=== PATIENT | female | born 1960 | race Caucasian/White ===

== ENCOUNTER 2016-08-26 05:45 | Day surgery (SDC) | payer OTHER ==
--- NOTE | 2016-08-25 15:02 | HP ---
DATE OF CLINIC: 1960 MARISELA MANUEL : 1960 PLANNED PROCEDURE: Left Knee Arthroscopic Medial Meniscal Tear Debridement and Chondroplasty DATE OF SURGERY: August 26, 2016 SURGEON: Kristopher Collado M.D. HISTORY OF PRESENT ILLNESS Marisela Manuel is a 56 year old female. * Medication list reviewed with patient allergy list reviewed with patient. * Tried NSAIDS * Has not tried Physical Therapy * Has not tried Injections The patient is a 56-year-old female who was referred to me by Dr. Chau regarding persistent left knee pain. The patient states that back in May of 2016 she developed left knee pain. 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 Patient reports that she never really had any problems with this pain. She has a number of medical issues such as Fibromyalgia after having herniated disc surgery, gall bladder surgery as well as ovarian cyst removal. She is wearing a brace and she states that this helps some of her pain and discomfort. Because this has not improved with nonoperative treatment, she was asked to see me for further evaluation and possible treatment. Ideally she would like to be treated nonoperatively however, the medial sided knee pain continues to bother her. She occasionally has catching in her knee. She points to her medial jointline where she has most of her discomfort. Dr. Chau has ordered knee MRI's as well as knee xrays and the patient has signs of an abnormal posterior horn medial meniscal tear with extension into the inferior articular surface. The patient does have some chondromalacia, or early arthritis on her medial jointline as well and she would like to know what options she has. Currently she has been taking anti-inflammatories with limited improvement. After discussion and review of treatment options, both nonoperative and surgical, she has elected to proceed with surgery and presents today preoperatively. CURRENT MEDICATION * Citalopram Hydrobromide 40 MG Tablet as directed 0 days, 0 refills * [facility] Ibuprofen 200 MG Tablet as needed 0 days, 0 refills * TraZODone HCl 50 MG Tablet as directed 0 days, 0 refills SOCIAL HISTORY Behavioral: Smoking status: Never smoker. ALLERGIES * Morphine Derivatives Reaction: Nausea/Vomiting/Diarrhea * Rice * Sulfa Drugs Reaction: Nausea/Vomiting/Diarrhea REVIEW OF SYSTEMS Systemic: No fever and no recent weight change. Cardiovascular: No chest pain or discomfort and no palpitations. Pulmonary: No cough and no wheezing. Gastrointestinal: No nausea, no vomiting, no abdominal pain, and no diarrhea. Hematologic: No easy bleeding (no blood clots). Neurological: No motor disturbances and no sensory disturbances. Skin: No skin lesions and no rash. PHYSICAL FINDINGS * Vitals taken 08/25/2016 09:48 am BP-Sitting R 136/94 mmHg 100 - 120/56 - 80 BP Cuff Size Regular Pulse Rate-Sitting 65 bpm 50 - 100 Pulse Rhythm Regular Temp-Oral 97.9 F 96 - 101 Weight 163 lbs 98 - 183 Pain Level 0 General Appearance: * Well developed. * In no acute distress. Eyes: General/bilateral: Extraocular Movements: * Normal. Lungs: * Clear to auscultation. * No wheezing was heard. * No rales/crackles were heard. Cardiovascular: Heart Rate And Rhythm: * Heart rate was normal. * Heart rhythm regular. Abdomen: Palpation: * Abdominal non-tender. Neurological: * Oriented to time, place, and person. Motor: * Dominant Hand = Right Hand. I had the patient walk for me in the hallway, she has a noticeable limp. When I asked her where she is tender she points to the medial aspect of her left knee. PHYSICAL FINDINGS RIGHT EXTREMITY Knee General Appearance: no signs of contusion, scars, swelling or edema Neurologic: Gross sensation to light touch was present in the distribution of DP/SP/MP/LP/saph/sural nerves Vascular: 2+ PT pulse Motor: 5 out of 5 strength quad, EHL, TA, GA, peroneals Range of Motion AROM: 0 to 130 degrees PROM: 0 to 135 degrees Focused Exam Findings: Patella Pateller tilt: neutral Patella non tender to touch No audible crepitus Knee Joint Medial joint line: non tender Lateral joint line: non tender Squat test with hyperflexion: No pain on right knee Donna exam: normal Anterior drawer: normal [place] maneuver: no snapping, pain negative Stable to varus and valgus stress at 0 and 30 degrees PHYSICAL FINDINGS LEFT EXTREMITY Knee General Appearance: no signs of contusion, scars, swelling or edema. The patient is tender to touch on the medial joint line with palpation. She has some tenderness with palpation on the medial femoral condyle Neurologic: Gross sensation to light touch was present in the distribution of DP/SP/MP/LP/saph/sural nerves Vascular: 2+ PT pulse Motor: 5 out of 5 strength quad, EHL, TA, GA, peroneals Range of Motion AROM: 5 to 110 degrees PROM: 0 to 120 degrees Focused Exam Findings: Patella Pateller tilt: neutral Patella tender to touch Mild amt of audible crepitus Knee Joint Medial joint line: Tender to touch Lateral joint line: non tender Squat test with hyperflexion: painful on medial aspect of the left knee Donna exam: normal Anterior drawer: normal [place] maneuver: no snapping, pain POSITIVE Stable to varus and valgus stress at 0 and 30 degrees PREVIOUS TESTS * Test: CBC WITH DIFF Report Date: 08/20/2016 WBC 6.9 10*3/mL MCV 89.9 fL RBC 4.66 10*6/uL NEUTROPHILS 53.6 % MCH 29.4 pg MCHC 32.7 g/dL Low RDW 13.4 % PLATELET COUNT 239 10*3/mL IMM NEUT % 0.1 % IMM NEUT # 0.0 10*3/mL MONOCYTES 7.8 % BASOPHIL 0.7 % EOSINOPHIL 3.2 % High HCT 41.9 % HGB 13.7 g/L LYMPHOCYTE 34.6 % ANC 3.7 10*3/mL * Test: BASIC METABOLIC PROFILE Report Date: 08/20/2016 BUN 15 mg/dL BUN/CREAT RATIO 21 High CALCIUM 9.6 mg/dL GLUCOSE 86 mg/dL CREATININE 0.7 mg/dL SODIUM 140 meq/L POTASSIUM 4.4 meq/L CHLORIDE 103 meq/L CARBON DIOXIDE 29 meq/L ANION GAP 12 meq/L GFR 86 IMAGING Xrays performed on 06/26/16 were reviewed. These xrays show bilateral knees. The patient has a maintained joint space on these radiographs. There is not a weightbearing view however, on the standing AP, lateral and [place] view, I think the cartilage all appears to be normal. No end-stage osteoarthritis is appreciated. I then evaluated the patient's MRI from 07/02/16. On the sagittal images the patient has medial meniscal tear. She does have an effusion of her knee, normal appearing ACL and PCL. I think the lateral meniscus does have a normal appearance. On the coronal images, the patient's articular cartilage appears to be fairly intact. There may be, on the axillary view, some evidence of chondromalacia on the undersurface of the patella, potentially on the medial femoral condyle. Chest xray from 08/20/16 is clear. No signs of any cardiopulmonary problems that would preclude the patient from surgery. ASSESSMENT Kristopher Collado MD made the following assessments * Osteoarthritis of knee -left * Internal derangement of medial meniscus of knee -left PLAN * OTHER Kell 5-325 MG TABS, as directed: one to two tabs by mouth every 4-6 hours as needed for pain, 7 days, 0 refills Kristopher Collado MD ordered the following therapy * Knee Arthroscopy (Left) with medial meniscal debridement and chondroplasty THERAPY * Patient not eligible for fall risk assessment. SURGICAL CONSENT We have discussed surgical options including left knee arthroscopic medial meniscal tear debridement, chondroplasty and nonoperative management. The patient and I spoke about her options. I explained how I would perform an arthroscopic evaluation and possibly perform a medial meniscal tear debridement and chondroplasty if it is warranted. We spoke about using Kell post-op due to her morphine senistivity. The patient plans to speak with anesthesia about possibly doing a spinal or using proprophol for her sedation for surgery to help avoid nausea. We then spoke about possible risks associated with surgery such as infection, DVT, persistent knee pain as well as other possible problems. The patient then signed the consent form and we spoke about the post-op rehab plan. The patient was counseled in detail regarding the diagnosis, treatment options available, prognosis of each treatment option and the potential risks and complications. The risks of surgery include, but are not limited to, anesthetic , neurovascular complications, pulmonary embolism, deep vein thrombosis, wound dehiscence, failure of any or all of the discussed procedures, infection of the joint or surrounding soft tissue, need for revision surgery, chronic pain, limitations in activities of daily living, inability to return to work, and loss of normal range of motion or functional use of the extremity. There is the possibility of failure over time that may require additional operative or nonoperative treatment. The patient acknowledged that there are a number of perioperative risks not mentioned here and would still like to proceed. The patient is aware of and understands these risks, and wishes to proceed with the proposed surgical procedure and other procedures as indicated at the time of surgery. The preoperative instructions were reviewed with the patient and all questions were answered. CARE TEAM Zoe Chau MD [facility]
[~2016-08-26 05:45] MED LIST: CEFAZOLIN SODIUM 2 GRAM PREMIX 100 ML IV PRN
[2016-08-26] MEDS ORDERED: LACTATED RINGERS 1,000 ML ONE (05:51)
[2016-08-26] MEDS ORDERED: IV START KIT ONE (05:52)
[2016-08-26] MEDS ORDERED: CEFAZOLIN SODIUM 2 GRAM PREMIX 100 ML IV ONE (06:12)
[2016-08-26] MEDS ORDERED: MIDAZOLAM HCL 1 MG/ML 2ML VIAL ONE (06:53)
[2016-08-26] MEDS ORDERED: FENTANYL 5 ML ONE (06:54)
[2016-08-26] MEDS ORDERED: BUPIVACAINE 0.25% (PRES FREE) 30 ML VIAL ONE (06:55)
[2016-08-26] MEDS ORDERED: SCOPOLAMINE 1.5 MG/72 HR 1 EACH PATCH TD ONE (06:58)
[2016-08-26] MEDS ORDERED: PROPOFOL 40 ML IV ONE (07:33)
[2016-08-26] MEDS ORDERED: LIDOCAINE 2% (PRES FREE) 5 ML VIAL ONE (07:33)
[2016-08-26] MEDS ORDERED: PROMETHAZINE HCL 25 MG/ML VIAL ONE (07:34)
[2016-08-26] MEDS ORDERED: ONDANSETRON 4 MG/2ML 2 ML VIAL ONE (07:37)
[2016-08-26] MEDS ORDERED: DEXAMETHASONE SOD PHOS 4 MG/1 ML VIAL ONE (07:37)
[2016-08-26] MEDS ORDERED: EPHEDRINE SULFATE UD SYR 25 MG 25 MG/5 ML SYRINGE IV ONE (07:38)
[2016-08-26] MEDS ORDERED: NALOXONE HCL 0.4 MG/ML VIAL IV PRN (07:40)
[2016-08-26] MEDS ORDERED: ATROPINE SULFATE 0.4 MG/1 ML VIAL IV PRN (07:40)
[2016-08-26] MEDS ORDERED: ONDANSETRON 4 MG/2ML 2 ML VIAL IV PRN ×2 (07:40→09:11)
[2016-08-26] MEDS ORDERED: HYDROMORPHONE HCL 1 MG/ML SYRINGE IV PRN (07:40)
[2016-08-26] MEDS ORDERED: MEPERIDINE 25 MG/ML SYRINGE IV PRN (07:40)
[2016-08-26] MEDS ORDERED: FENTANYL 100 MCG/2 ML VIAL IV PRN (07:40)
[2016-08-26] MEDS ORDERED: PROMETHAZINE HCL 25 MG/ML VIAL IM PRN (07:40)
[2016-08-26] MEDS ORDERED: LACTATED RINGERS 1,000 ML IV SCH ×2 (07:45→09:11)
[2016-08-26] MEDS ORDERED: PROPOFOL 20 ML IV ONE (08:05)
[2016-08-26] MEDS ORDERED: KETOROLAC TROMETHAMINE 30 MG/ML 1 ML VIAL ONE (08:10)
--- NOTE | 2016-08-26 08:26 | PCMBPN ---
Brief Post Op Note: Date of Procedure: 08/26/16 Preoperative Diagnosis: 1. left knee medial meniscal tear Postoperative Diagnosis: 1. left knee medial meniscal tear and patellofemoral chondromalacia Procedure: left knee arthroscopic medial meniscal tear debridement and patella chondroplasty Surgeon: Kristopher Collado MD Assist: None Anesthesia: GETA (TIVA), 30mL 0.5% marcaine without epi injected into the portal sights Findings: pt had a posterior horn medial meniscal tear. Grade 1 chondromalacia of the medial femoral condyle 5mm x10mm. Grade 3 patella chondromalacia Condition: extubated, stable vitals, transferred to pacu Complications: None IV Fluids: 800 mLs of LR Urine Output: 0mLs Estimated Blood Loss: 5 mLs Tourniquet Time: [N/A] Specimens: [N/A] Implants: None Drains: [N/A] PLAN: WBAT on the LLE. [place] for pain control. ASA for DVT.
[2016-08-26] MEDS ORDERED: ACETAMINOPHEN 325 MG TABLET PO PRN (09:11)
[2016-08-26] MEDS ORDERED: DIPHENHYDRAMINE HCL 50 MG/1 ML VIAL IV PRN (09:11)
[2016-08-26] MEDS ORDERED: HYDROCODONE/ACETAMINOPHEN 5/325MG TABLET PO PRN (09:11)
[2016-08-26] MEDS ORDERED: HYDROCODONE/ACETAMINOPHEN 5/325MG TABLET ONE (10:19)
[2016-08-27] MEDS ORDERED: IV START KIT ONE (06:00)
[2016-08-27] MEDS ORDERED: LACTATED RINGERS 0 ML ONE (06:00)
--- NOTE | 2016-08-27 10:44 | OP ---
Marisela JUSTICE : 1960 [id number] DATE OF PROCEDURE: August 26, 2016 PREOPERATIVE DIAGNOSIS: Left knee medial meniscal tear. POSTOPERATIVE DIAGNOSES: Left knee medial meniscal tear and patellofemoral chondromalacia. PROCEDURE: LEFT KNEE ARTHROSCOPIC MEDIAL MENISCAL TEAR DEBRIDEMENT AND PATELLA CHONDROPLASTY. SURGEON: Kristopher Collado M.D. GAS STATION CASHIER: None. ANESTHESIA: General with Tiva, 30 mL of 0.5% Marcaine without epinephrine was injected at the arthroscopic incisional sites for postoperative pain control. FINDINGS: As suspected the patient had a posterior horn medial meniscal tear along with great 1 chondromalacia of the medial femoral condyle. This was a small area which I measured as 5 mm x 10 mm. The patient had grade 2 and grade 3 changes of the patella which may be consistent with her pain. A chondroplasty was performed on this patella for two loose fragments. CONDITION: The patient was extubated with stable vital signs and transferred to the PACU. COMPLICATIONS: None. INTRAVENOUS FLUIDS: 800 mL of Lactate Ringer's. URINE OUTPUT: 0 mL ESTIMATED BLOOD LOSS: 5 mL SPECIMENS: N/A TOURNIQUET TIME: N/A IMPLANTS: None. DRAINS: N/A PLAN: The patient will be weight-bearing as tolerated on the left lower extremity. Olin for pain control, aspirin for DVT prophylaxis. INDICATIONS: The patient is a 56-year-old female with persistent left knee pain that has not improved since May of this year. She works at [employer] and never really had any trauma on the side. She complains about pain on the medial joint line and this pain is inhibiting her from doing activities of daily living. She is planning on going to [place] and after a failure of nonoperative treatment she was referred to me for possible treatment options. I reviewed her MRI images which were obtained by Dr. Chau her primary care provider which was concerning for a medial meniscal tear. The patient had some signs of chondromalacia. I talked to her about the possibility that some of her pain can be coming from this medial meniscal tear along with the chondromalacia underneath her patella. I told her that any surgery would be aimed at relieving her pain although this cannot be guaranteed if it was solely due to the chondral changes. If there was a mechanical problem this would improve at least that is my expectation. After reviewing the risks and benefits of this procedure she decided to proceed. PROCEDURE DESCRIPTION: The patient was seen in the preoperative area where we confirmed the left side was the correct side. They agreed that the left side was the correct side and that our proposed procedure was a left knee arthroscopy with possible medial meniscal tear debridement and chondroplasty. The patient's left knee was marked with my initials and the word "yes". I signed and confirmed that the H&P was correct and updated. At this point in time with the patient's leg signed, the patient was brought from the preoperative area to the operating theater where they were placed on the OR table. A safety belt was placed and the patient was placed asleep without incident. The patient's left lower extremity was then placed in a knee kilgore and a tourniquet was placed, although it was not elevated for the procedure. The knee was then prepped and draped in sterile fashion first with a Chlorhexadine scrub and prep. Once the knee was prepped, the lateral peripatellar tendon incision was marked with a marking pen as well as the superolateral outflow portal. I then performed a final time out confirming that the left side was the correct side, that Ancef 2 g had been given approximately 20 minutes prior to entering the room. The patient had SCD's on their right lower extremity for intraoperative DVT prophylaxis and xrays and MRI were up on the exam board. After everyone in the room confirmed that the left side was the correct side, 20 mL of 0.25% Marcaine without epinephrine was injected by our portal sites for postop pain relief. A #11 blade was now used with the knee flexed in 30 degrees of flexion to allow entry of my scope into the notch. With this in place I extended the knee placing the scope into the patellofemoral joint. I then used the #11 blade to make my lateral superior outflow portal. I then performed a diagnostic knee arthroscopy. My diagnostic arthroscopy revealed a small area of 5 x 10 mm on the medial femoral condyle where the patient had grade 1 chondromalacia. There was a loose cartilaginous flap which I used a shaver to debride. The patient did have a full thickness [id number] tear that extended to the articular surface. I used an upbiter to cut this back to a stable rim and then a shaver to bring this back. A probed this and was happy that there was no other displaced fragments. I then probed the ACL, PCL and lateral meniscus and this was all normal. No problems with the cartilaginous surface in the trochlea or lateral femoral condyle. The patient did have some grade 3 chondromalacia and grade 2 chondromalacia changes of the superior patella as well as the lateral facet. There was one loose flap of cartilaginous tissue. I then confirmed good hemostasis and then was ready to close. The incision was now closed with 4-0 nylon simple sutures. Next, 20mL of 0.25% marcaine without epinephrine was injected at the portal sites. The patient's knee was checked for having good hemostasis and all needles counts were correct at the end of the case. The knee was covered with a DSD, JUNAID wrap and a cryo-cuff. The patient was awoken without difficulty and taken to the recovery room. The patient will be weight-bearing as tolerated in the left lower extremity. I asked the patient to work on range of motion. Because of her sensitivities to narcotics she most likely will not take much of her Olin, however this was given to her along with aspirin. I attempted to answer all of her questions today. I will plan on her following with me in a week for a wound check. Job [id number] CC: Montgomery Rosanna
== END 2016-08-26 11:03 | disposition home or self-care (01) ==
LOC: SDC 05:45
PROVIDERS: ATTEND Orthopaedic Surgery
PROC: 0SBD4ZZ Excision of Left Knee Joint, Percutaneous Endoscopic Approach (ICD-10-PCS; principal; 2016-08-26)
PROC: 0SBD4ZZ Excision of Left Knee Joint, Percutaneous Endoscopic Approach (ICD-10-PCS; 2016-08-26)
DX: M23.222 Derangement of posterior horn of medial meniscus due to old tear or injury, left knee (principal); M22.42 Chondromalacia patellae, left knee; M17.12 Unilateral primary osteoarthritis, left knee; Z88.5 Allergy status to narcotic agent; Z88.2 Allergy status to sulfonamides